=== PATIENT | female | born 1935 | race Caucasian/White ===

== ENCOUNTER 2018-03-30 10:29 | Observation (INO) | payer OTHER ==
[~2018-03-30] VITALS: Ht 154.9 cm; Wt 90.9 kg
[~2018-03-30 10:29] MED LIST: AMITIZA24 MCG PO; ASPIRIN81 MG PO; BUPROPION XL300 MG PO; CENTRUM SILVER1 EAC3 PO; CITALOPRAM HBR40 MG OD; FUROSEMIDE40 MG PO; HYDROCHLOROTHIA25 MG PO; IRON PO; LEVOTHYROXINE75 MCG PO; LISINOPRIL20 MG PO; METFORMIN HCL500 MG PO; OMEPRAZOLE20 M1 PO; OMEPRAZOLE40 MG PO; ONDANSETRON PO; POTASSIUM CHLO10 ME1 PO; PRAVASTATIN SOD40 MG PO; VENLAFAXINE HC150 M1 PO
[2018-03-30] MEDS ORDERED: FUROSEMIDE INJ 10 MG/ML 4 ML VIAL IV ONE (10:45)
[2018-03-30] MEDS ORDERED: ASPIRIN 81 MG CHEW TAB PO ONE ×2 (10:45→13:00)
[2018-03-30] MEDS ORDERED: ATORVASTATIN CA20 MG PO (10:57)
[2018-03-30] MEDS ORDERED: VERAPAMIL ER120 MG PO (10:57)
[2018-03-30] MEDS ORDERED: CARTIA XT120 MG PO (10:57)
[2018-03-30] MEDS ORDERED: NITROGLYCERIN0.4 MG SL (10:57)
[2018-03-30] MEDS ORDERED: ISOSORBIDE MONO20 MG PO (10:57)
[2018-03-30] MEDS ORDERED: PAROXETINE HCL20 MG PO (10:57)
[2018-03-30] MEDS ORDERED: LOSARTAN-HCTZ1 EAC1 PO (10:58)
[2018-03-30] MEDS ORDERED: XARELTO10 MG PO (10:58)
[2018-03-30 11:12] LABS: BASOPHILS % 0.3 % (0.0-1.0); EOSINOPHILS % 0.4 % (0.0-6.0); HEMATOCRIT 31.7 % (34.2-44.1); HEMOGLOBIN 9.7 g/dL (12.0-16.0); LYMPHOCYTES # (AUTO) 1.2 (1.0-3.2); MEAN CORPUSCULAR HEMOGLOBIN 24.7 pg (28-32); MEAN CORPUSCULAR HGB CONC 30.6 g/dL (31-35); MEAN CORPUSCULAR VOLUME 80.9 fL (81-99); MONOCYTES # (AUTO) 0.5 (0.2-0.8); MONOCYTES % 4.5 % (4.4-11.3); NEUTROPHILS # (AUTO) 8.9 (2.1-6.9); NEUTROPHILS % 83.4 % (38.7-80.0); PLATELET COUNT 351 x10e3/uL (140-360); RED BLOOD COUNT 3.92 x10e6/uL (3.6-5.1); RED CELL DISTRIBUTION WIDTH 16.4 % (11.7-14.4)
[2018-03-30 11:20] LABS: ABG HCO3 32 mmol/L (23-28); ABG PCO2 46 mmHg (41-51); ABG PH 7.45 (7.31-7.41); ABG PO2 79 mmHg (80-105)
[2018-03-30 11:29] LABS: ALBUMIN 3.5 g/dL (3.5-5.0); ANION GAP 18.4 mmol/L (8-16); CALCIUM 9.6 mg/dL (8.4-10.2); CREATININE, SERUM 1.29 mg/dL (0.57-1.11); POTASSIUM 3.4 mmol/L (3.5-5.1)
--- NOTE | 2018-03-30 11:32 | Diagnostic Imaging Report ---
EXAMINATION: CHEST SINGLE (PORTABLE) COMPARISON: None FINDINGS: TUBES and LINES: None. LUNGS: Lungs are well inflated. Lungs are clear. There is no evidence of pneumonia or pulmonary edema. PLEURA: No pleural effusion or pneumothorax. HEART AND MEDIASTINUM: The cardiomediastinal silhouette is unremarkable. BONES AND SOFT TISSUES: No acute osseous lesion. Soft tissues are unremarkable. UPPER ABDOMEN: No free air under the diaphragm. IMPRESSION: No acute radiographic abnormality. Signed by: Dr. Rick Rosa MD on 03/30/2018 11:28 AM
[2018-03-30 11:35] LABS: CREATINE KINASE MB 1.1 ng/mL (0-5.0)
[2018-03-30 11:37] LABS: CLARITY,URINE CLEAR (CLEAR); COLOR,URINE STRAW (YELLOW)
[2018-03-30 11:38] LABS: BILIRUBIN,URINE NEGATIVE (NEGATIVE); KETONES,URINE NEGATIVE (NEGATIVE); LEUKOCYTE ESTERASE ,URINE TRACE (NEGATIVE); NITRITE,URINE NEGATIVE (NEGATIVE); PROTEIN,URINE DIPSTICK NEGATIVE (NEGATIVE); URINE UROBILINOGEN 0.2 mg/dL (0.2 - 1)
[2018-03-30] MEDS ORDERED: SODIUM CHLORIDE 0.9% 250ML 250 ML IV ONE (11:45)
[2018-03-30 11:47] LABS: EPITHELIAL CELLS,URINE MANY /LPF
[2018-03-30 11:48] LABS: BACTERIA,URINE RARE /HPF; TRANSITIONAL EPI CELLS,URINE FEW
[2018-03-30] MEDS ORDERED: ACETAMINOPHEN 325 MG TAB ONE (12:23)
[2018-03-30] MEDS ORDERED: ACETAMINOPHEN 325 MG TAB PO ONE (12:30)
--- NOTE | 2018-03-30 13:24 | Diagnostic Imaging Report ---
EXAMINATION: CT of the chest with contrast, PE protocol. TECHNIQUE: Spiral CT images of the chest were performed from the lung apices through the level of the adrenal glands after the IV administration of 100 cc of Isovue 370. Thin section reconstructions were obtained with special concentration on the pulmonary arteries. Coronal and sagittal reformatted images were also performed. COMPARISON: <none> CLINICAL HISTORY:Shortness of breath DISCUSSION: Exam is mildly limited, as it was acquired during partial expiratory phase as secondary to breathing motion artifact Lungs: No filling defects are identified in the main, right or left pulmonary arteries to their segmental levels, to suggest pulmonary embolism. Mild diffusely increased attenuation of the pulmonary parenchyma secondary to scan obtained during partial expiration. No pulmonary nodules, masses or consolidation. Central airways are clear, without bronchial lesions. Pleura: <There is no evidence of pleural effusion or pneumothorax.> Heart and mediastinum: Mild cardiomegaly. Atherosclerotic calcification of the coronary arteries, aortic valves and thoracic aorta. Aorta is nonaneurysmal. Main pulmonary artery is normal in caliber, measuring approximately 2.2 cm. Lymph nodes: No mediastinal, hilar or axillary adenopathy. Abdomen: Limited visualization of the upper abdomen shows no abnormalities in the liver, spleen, pancreas, left kidney or adrenal glands. Bones and soft tissues: Multilevel degenerative disc changes in the thoracic spine. Generalized osteopenia. Mild anterior wedge deformity of the T5 vertebral body, likely reflecting an age-indeterminate compression deformity. Soft tissues are grossly unremarkable. IMPRESSION: 1. Despite limitations secondary to scan performed during partial expiratory phase and breathing motion artifact, there is no CT evidence of pulmonary embolism to the segmental level. 2. Essentially clear lungs. 3. Mild cardiomegaly. Signed by: Dr. Mark Steven M.D. on 03/30/2018 1:21 PM
--- OUTSIDE RECORDS SUMMARY | 2018-03-30 13:55 | XMS REPORT ---
Author Author [facility] Address Unknown Phone Unavailable Care Team Providers Care Director Nursing Service Name Role Phone Rosa BRODERICK Unavailable Unavailable Problems This patient has no known problems. Allergies, Adverse Reactions, Alerts This patient has no known allergies or adverse reactions. Medications This patient has no known medications. Results Test Description Test Time Test Comments Text Results Atomic Results Result Comments CT CHEST W 2018-03-30 13:11:00 [place] [address] Patient Name: BALJEET ABRAHAM MR #: [id number] : 1935 Age/Sex: 82/F Req #: [id number] [facility] Physician: Ordered by: MARIVEL BRODERICK MD Report #: [id number] Location: ER Room/Bed: Procedure: [id number] CT/CT CHEST W Exam Date: Exam Time: REPORT STATUS: Signed EXAMINATION: CT of the chest with contrast, PE protocol. TECHNIQUE: Spi ral CT images of the chest were performed from the lung apices through the level of the adrenal glands after the IV administration of 100 cc of Isovue 370. Thin section reconstructions were obtained with special concentration on the pulmonary arteries. Coronal and sagittal reformatted images were also performed. COMPARISON: <none> CLINICAL HISTORY:Shortness of breath DISCUSSION: Exam is mildly limited, as it was acquired during partial expiratory phase as secondary to breathing motion artifact Lungs: No filling defects are identified in the main, right or left pulmonary arteries to their segmental levels, to suggest pulmonary embolism. Mild diffusely increased attenuation of the pulmonary parenchyma secondary to scan obtained during partial expiration. No pulmonary nodules, masses or consolidation. Central airways are clear, without bronchial lesions. Pleura: <There is no evidence of pleural effusion or pneumothorax.> Heart and mediastinum: Mild cardiomegaly. Atherosclerotic calcification of the coronary arteries, aortic valves and thoracic aorta. Aorta is nonaneurysmal. Main pulmonary artery is normal in caliber, measuring approximately 2.2 cm. Lymph nodes: No mediastinal, hilar or axillary adenopathy. Abdomen: Limited visualization of the upper abdomen shows no abnormalities in the liver, spleen, pancreas, left kidney or adrenal glands. Bones and soft tissues: Multilevel degenerative disc changes in the thoracic spine. Generalized osteopenia. Mild anterior wedge deformity of the T5 vertebral body, likely reflecting an age- indeterminate compression deformity. Soft tissues are grossly unremarkable. IMPRESSION: 1. Despite limitations secondary to scan performed during partial expiratory phase and breathing motion artifact, there is no CT evidence of pulmonary embolism to the segmental level. 2. Essentially clear lungs. 3. Mild cardiomegaly. Signed by: Dr. Leila Steven M.D. on 03/30/2018 1:21 PM Dictated By: LEILA STEVEN MD 1321 Transcribed By: OSMEL on 03/30/18 1321 COPY TO: MARIVEL BRODERICK MD CHEST SINGLE (PORTABLE) 2018-03-30 11:26:00 [place] [address] Patient Name: BALJEET ABRAHAM MR #: [id number] : 1935 Age/Sex: 82/F Req #: [id number] Adm Physician: Ordered by: MARIVEL BRODERICK MD Report #: [id number] Location: ER Room/Bed: Procedure: [id number] DX/CHEST SINGLE (PORTABLE) Exam Date: 03/30/18 Exam Time: 1105 REPORT STATUS: Signed EXAMINATION: CHEST SINGLE (PORTABLE) HEATHER RISON: None FINDINGS: TUBES and LINES: None. LUNGS: Lungs are well inflated. Lungs are clear. There is no evidence of pneumonia or pulmonary edema. PLEURA: No pleural effusion or pneumothorax. HEART AND MEDIASTINUM: The cardiomediastinal silhouette is unremarkable. BONES AND SOFT TISSUES: No acute osseous lesion. Soft tissues are unremarkable. UPPER ABDOMEN: No free air under the diaphragm. IMPRESSION: No acute radiographic abnormality. Signed by: Dr. Karen Meraz MD on 03/30/2018 11:28 AM Dictated By: KAREN MERAZ MD 1128 Transcribed By: OSMEL on 03/30/18 1128 COPY TO: MARIVEL BRODERICK MD
[2018-03-30] MEDS ORDERED: SODIUM CHLORIDE 0.9% 50ML 50 ML ONE (13:57)
[2018-03-30] MEDS ORDERED: IOPAMIDOL 370 MG/ML 200 ML INFUS..BTL INJ ONE (13:57)
[2018-03-30 15:29] VITALS: BP 122/59
[2018-03-30 15:55] VITALS: BP 122/59
[2018-03-30 19:26] LABS: CREATINE KINASE MB 1.7 ng/mL (0-5.0)
[2018-03-30 20:00] VITALS: BP 133/62
[2018-03-30] MEDS ORDERED: NITROGLYCERIN 0.4 MG SUBL SL SCH (20:00)
[2018-03-30] MEDS: ATORVASTATIN 20 MG TAB PO SCH (21:04)
[2018-03-30] MEDS: PAROXETINE HCL 20 MG TAB PO SCH (21:04)
[2018-03-30 22:20] VITALS: BP 133/62
[2018-03-31] VITALS (8 sets, daily range): BP systolic 102–136; BP diastolic 53–67
[2018-03-31 05:18] LABS: ANION GAP 14.1 mmol/L (8-16); CALCIUM 9.1 mg/dL (8.4-10.2); CREATININE, SERUM 1.19 mg/dL (0.57-1.11); POTASSIUM 3.1 mmol/L (3.5-5.1)
[2018-03-31] MEDS: LEVOTHYROXINE SODIUM 100 MCG TAB PO SCH (05:21)
[2018-03-31 07:12] LABS: CREATINE KINASE MB 1.9 ng/mL (0-5.0)
[2018-03-31] MEDS: PANTOPRAZOLE SOD 40 MG TABEC PO SCH (08:43)
[2018-03-31] MEDS: ASPIRIN 81 MG CHEW TAB PO SCH (08:47)
[2018-03-31] MEDS: VERAPAMIL HCL 120 MG TABSR PO SCH (08:47)
[2018-03-31] MEDS: DILTIAZEM HCL ER 120 MG CAPCR PO SCH (08:48)
[2018-03-31] MEDS: RIVAROXABAN 15 MG TABLET PO SCH (08:48)
[2018-03-31] MEDS: POTASSIUM CHLORIDE 10MEQ EA PO SCH (08:48)
[2018-03-31] MEDS: ISOSORBIDE MONONITRATE 30 MG TAB CR PO SCH (08:48)
[2018-03-31] MEDS: PAROXETINE HCL 20 MG TAB PO SCH (08:48)
[2018-03-31] MEDS ORDERED: FUROSEMIDE 40 MG TAB PO SCH (09:00)
[2018-03-31] MEDS ORDERED: POTASSIUM CHLORIDE 20 MEQ TAB CR PO ONE (09:00)
--- NOTE | 2018-03-31 09:07 | Consultation ---
DATE OF CONSULTATION: March 30, 2018 CARDIOLOGY CONSULTATION REASON FOR CONSULTATION: CHF and dyspnea. HPI: This is a pleasant 82-year-old female that presented with dyspnea. According to the patient, yesterday she started having shortness of breath, dyspnea with activity that she came to the emergency room for evaluation. She stated for the last couple of months she had been having the same symptoms that comes and goes. She denied any chest pain, any palpitations, any dizziness, any diaphoresis, or headache. She had a CT of chest done that showed mild cardiomegaly. Chest x-ray showed no acute radiographic abnormalities. Troponin was negative times 3. EKG showed normal sinus rhythm with no S/T abnormalities. BNP was 94. She also had a history of paroxysmal AFib, and was started on Xarelto recently. PAST MEDICAL HISTORY: Hypertension, diabetes, obesity, [place], GERD, hypothyroidism, osteoarthritis, paroxysmal AFib, depression, and renal insufficiency. PAST SURGICAL HISTORY: Left knee surgery and cardiac stent. FAMILY HISTORY: Positive for hypertension. SOCIAL HISTORY: She lives at home with family. She quit smoking 20 years ago. MEDICATIONS: She was on aspirin, atorvastatin, Cardizem, furosemide, isosorbide, levothyroxine, nitroglycerin, omeprazole, paroxetine, potassium chloride, Xarelto, and verapamil. ALLERGIES: SHE IS NOT ALLERGIC TO ANY MEDICATIONS. REVIEW OF SYSTEMS: Negative except those mentioned above. She is positive for dyspnea. PHYSICAL EXAMINATION VITAL SIGNS: Temperature 98, heart rate 69, blood pressure 110/54, respirations 18, oxygen saturation 95% on 3 L nasal cannula. GENERAL: She is awake, alert and oriented times 3. HEENT: Mucous membranes moist. NECK: Supple. LUNGS: Bilateral clear to auscultation. CARDIOVASCULAR: S1 and S2 present. ABDOMEN: Soft. NEUROLOGICAL: Intact. EXTREMITIES: With no edema. LABS: Sodium 141, potassium 3.1, chloride 98, CO2 32, BUN 18, creatinine 1.1, glucose 138. White blood cells 10.6, hemoglobin 9.7, hematocrit 31.7, and platelets 351,000. IMPRESSION 1. Acute diastolic congestive heart failure. 2. Paroxysmal atrial fibrillation. 3. Hypertension. 4. Hypokalemia. 5. Diabetes. 6. Obesity. 7. Renal insufficiency. 8. History of coronary artery disease with cardiac stents. 9. Anemia. ASSESSMENT AND PLAN 1. She had an echocardiogram done that showed normal systolic function, EF 50% to 55%. 2. Will go ahead and continue her home medications. 3. Check her hemoglobin A1c and TSH. 4. Counseled on low salt diet and weight reduction. Potassium is low and has been replaced. Further cardiac workup pending clinical course. Thank you for this consultation. DICTATED BY CARISA CARRINGTON NP Job#: [id number] SURESH
[2018-03-31 10:09] LABS: % IRON SATURATION 7 % (15-50); IRON 30 ug/dL (50-170); TOTAL IRON BINDING CAPACITY 402 ug/dL (261-478); TRANSFERRIN 287 mg/dL (180-382)
[2018-03-31] MEDS ORDERED: FUROSEMIDE INJ 10 MG/ML 4 ML VIAL IV ONE (10:15)
--- NOTE | 2018-03-31 10:28 | History and Physical ---
PCP: Dr. Shoaib Navarrete CHIEF COMPLAINT: Shortness breath on exertion. HISTORY OF PRESENT ILLNESS: Patient is an 82-year-old female with coronary disease and paroxysmal atrial fibrillation who came in with congestive heart failure acute exacerbation, most likely chronic diastolic dysfunction heart failure. Patient has been taking a water pill, and she has been losing approximately 6 to 8 pounds with increased urination, which helped the breathing, but she did have some shortness of breath overnight, which brought the patient in. She has trace TR and mild MR. Ejection fraction on echocardiogram showed 55%. Patient is otherwise stable. She is slightly anemic secondary to chronic kidney disease. PAST MEDICAL HISTORY: Chronic anemia, paroxysmal atrial fibrillation, diastolic dysfunction congestive heart failure, history of hypertension. She also has coronary disease with 2 previous stents approximately 14 and 19 years ago. PAST SURGICAL HISTORY: Left knee replacement, partial right nephrectomy, hysterectomy, appendectomy. SOCIAL HISTORY: Patient quit smoking greater than 20 years ago. HOME MEDICATIONS: List is reviewed. ALLERGIES: NO KNOWN ALLERGIES. REVIEW OF SYSTEMS: Shortness of breath on exertion, much improved. No chest pain. No lower extremity edema. No abdominal pain. PHYSICAL EXAMINATION VITAL SIGNS: Temperature is 98, blood pressure 114/69, pulse rate 70. Respirations 18. GENERAL: The patient is in no acute distress. She is awake. HEENT: Normocephalic, atraumatic, anicteric. NECK: Supple grossly. PULMONARY: Diminished breath sounds with minimal rales at the bases. CARDIOVASCULAR: S1 and S2. Regular rate and rhythm. ABDOMEN: Soft. Positive bowel sounds. Grossly nontender and nondistended. EXTREMITIES: No cyanosis or edema. NEUROLOGIC: No focal deficit. LABORATORY: Sodium is 141, potassium 3.1, chloride 98, bicarb 32, BUN 18, creatinine 1.1. Glucose 188. WBC is 11, hemoglobin 9.7, hematocrit 31.7, platelets 351. CT chest showed there is no evidence of pulmonary embolism. Mild cardiomegaly. IMPRESSION 1. Axive-ey-kzxwide diastolic dysfunction congestive heart failure exacerbation. 2. Shortness of breath on exertion. 3. Multiple chronic baseline problems, coronary disease, chronic anemia, history of right partial nephrectomy, history of coronary stent times 2. 4. Ex-smoker. 5. Paroxysmal atrial fibrillation. PLAN: Continue with diuresis. Replace potassium. Continue with anticoagulant therapy. Will monitor the patient closely. Job#: [id number] MH
[2018-03-31 10:52] LABS: FOLATE 18.1 ng/mL (7.0-15.4)
[2018-03-31] MEDS: ATORVASTATIN 20 MG TAB PO SCH (21:19)
[2018-04-01 01:00] VITALS: BP 116/56
[2018-04-01 03:35] VITALS: BP 129/59
[2018-04-01 05:19] LABS: BASOPHILS % 0.5 % (0.0-1.0); EOSINOPHILS # (AUTO) 0.3 (0.0-0.4); EOSINOPHILS % 6.2 % (0.0-6.0); HEMOGLOBIN 8.5 g/dL (12.0-16.0); LYMPHOCYTES # (AUTO) 1.8 (1.0-3.2); LYMPHOCYTES % 32.8 % (18.0-39.1); MEAN CORPUSCULAR HEMOGLOBIN 25.2 pg (28-32); MEAN CORPUSCULAR HGB CONC 31.5 g/dL (31-35); MEAN CORPUSCULAR VOLUME 80.1 fL (81-99); MONOCYTES # (AUTO) 0.4 (0.2-0.8); MONOCYTES % 7.8 % (4.4-11.3); NEUTROPHILS # (AUTO) 2.9 (2.1-6.9); NEUTROPHILS % 52.3 % (38.7-80.0); PLATELET COUNT 297 x10e3/uL (140-360); RED BLOOD COUNT 3.37 x10e6/uL (3.6-5.1); RED CELL DISTRIBUTION WIDTH 16.2 % (11.7-14.4)
[2018-04-01 05:41] LABS: ANION GAP 14.6 mmol/L (8-16); CALCIUM 9.2 mg/dL (8.4-10.2); CREATININE, SERUM 1.1 mg/dL (0.57-1.11); POTASSIUM 3.6 mmol/L (3.5-5.1)
[2018-04-01] MEDS: LEVOTHYROXINE SODIUM 100 MCG TAB PO SCH (05:45)
[2018-04-01 08:31] VITALS: BP 124/54
[2018-04-01] MEDS: PANTOPRAZOLE SOD 40 MG TABEC PO SCH (08:52)
[2018-04-01] MEDS: ASPIRIN 81 MG CHEW TAB PO SCH (08:53)
[2018-04-01] MEDS: POTASSIUM CHLORIDE 10MEQ EA PO SCH (08:55)
[2018-04-01] MEDS: DILTIAZEM HCL ER 120 MG CAPCR PO SCH (08:55)
[2018-04-01] MEDS: VERAPAMIL HCL 120 MG TABSR PO SCH (08:57)
[2018-04-01] MEDS: RIVAROXABAN 15 MG TABLET PO SCH (08:59)
[2018-04-01] MEDS: ISOSORBIDE MONONITRATE 30 MG TAB CR PO SCH (08:59)
[2018-04-01] MEDS: PAROXETINE HCL 20 MG TAB PO SCH (09:00)
[2018-04-01] MEDS ORDERED: FUROSEMIDE INJ 10 MG/ML 4 ML VIAL IV SCH (09:00)
[2018-04-01] MEDS ORDERED: ACETAMINOPHEN 325 MG TAB PO NR (11:45)
[2018-04-01] MEDS ORDERED: DIPHENHYDRAMINE HCL 25 MG CAP PO NR (11:45)
[2018-04-01] MEDS ORDERED: IRON SUCROSE 100 MG in SODIUM CHLORIDE 0.9% 100 ML 100 ML IV SCH (12:00)
[2018-04-01 12:10] VITALS: BP 114/62
[2018-04-01 16:42] VITALS: BP 118/59
[2018-04-01 18:46] VITALS: BP 118/59
--- NOTE | 2018-04-02 05:55 | Discharge Summary ---
PRIMARY CARE PHYSICIAN: Shoaib Navarrete MD LEAD SOFTWARE DEVELOPMENT ENGINEER: Servando Ziegler MD FINAL DIAGNOSES 1. [id number] diastolic dysfunction congestive heart failure associated with volume overload associated with increasing shortness of breath, resolved. 2. Chronic anemia. SUMMARY: An 82-year-old female who came in with increasing shortness of breath. Apparently she stopped taking her Lasix. The patient is stable now. The echocardiogram showed ejection fraction of 60%. Patient is going back to her usual home medications. Her hemoglobin and hematocrit is 8.5 and 27. No active bleed. No sign of bleeding and anemia, but the patient does have chronic anemia secondary to iron deficiency. Iron infusion given 1 dose. Hemocyte Plus 1 tablet twice a day given to the patient. Patient is stable. Resume home medications. Discharged home today. Discontinue lisinopril/HCTZ. Continue with Lasix and potassium. Discontinue Cartia XL and continue with verapamil ER 180 mg daily. The patient is otherwise stable. Discharged home today. Job#: [id number] KYLEIGH
== END 2018-04-01 18:40 | disposition home or self-care (01) ==
LOC: ER 10:29 → ERHOLD 12:53 → IMCU 15:09
PROVIDERS: ADMIT Internal Medicine; ATTEND Internal Medicine
DX: I13.0 Hypertensive heart and chronic kidney disease with heart failure and stage 1 through stage 4 chronic kidney disease, or unspecified chronic kidney disease (principal); I50.33 Acute on chronic diastolic (congestive) heart failure; I48.0 Paroxysmal atrial fibrillation; I25.10 Atherosclerotic heart disease of native coronary artery without angina pectoris; Z95.5 Presence of coronary angioplasty implant and graft; Z87.891 Personal history of nicotine dependence; N18.9 Chronic kidney disease, unspecified; D63.1 Anemia in chronic kidney disease; E87.6 Hypokalemia; E11.22 Type 2 diabetes mellitus with diabetic chronic kidney disease; E66.9 Obesity, unspecified; Z68.36 Body mass index [BMI] 36.0-36.9, adult
CPT/HCPCS: 36415 ×3; 36600; 71045; 71260; 80048; 80053 ×2; 81001; 82550 ×2; 82553 ×2; 82607; 82746; 82805; 83036; 83540; 83735; 83880; 84443; 84466; 84484 ×2; 85025 ×2; 93005 ×2; 93306; 99284; G0378 ×3; J1756; J1940 ×3; J7050; Q9967; S0164 ×2

== ENCOUNTER → 2021-12-03 | Day surgery (SDC) | payer OTHER ==
[2021-12-01 13:08] LABS: BASOPHILS % 0.8 % (0.0-1.0); EOSINOPHILS # (AUTO) 0.2 (0.0-0.4); EOSINOPHILS % 3.6 % (0.0-6.0); HEMATOCRIT 32.2 % (34.2-44.1); HEMOGLOBIN 9.7 g/dL (12.0-16.0); LYMPHOCYTES # (AUTO) 1.5 (1.0-3.2); LYMPHOCYTES % 28.4 % (18.0-39.1); MEAN CORPUSCULAR HEMOGLOBIN 27.4 pg (28-32); MEAN CORPUSCULAR HGB CONC 30.1 g/dL (31-35); MONOCYTES # (AUTO) 0.5 (0.2-0.8); MONOCYTES % 9.3 % (4.4-11.3); NEUTROPHILS # (AUTO) 3.1 (2.1-6.9); NEUTROPHILS % 57.7 % (38.7-80.0); PLATELET COUNT 334 x10e3/uL (140-360); RED BLOOD COUNT 3.54 x10e6/uL (3.6-5.1); RED CELL DISTRIBUTION WIDTH 13.3 % (11.7-14.4)
[2021-12-01 13:19] LABS: ANION GAP 12.9 mmol/L (8-16); CALCIUM 8.8 mg/dL (8.4-10.2); CREATININE, SERUM 1.32 mg/dL (0.57-1.11); POTASSIUM 3.9 mmol/L (3.5-5.1)
[~2021-12-03] MED LIST changes: +ATORVASTATIN CA20 MG PO; +BALANCED SALT SOLN (OPTH) 15 ML BTL IO ONE; +BUPIVACAINE HC 0.75% PF 10ML VIAL INJ ONE; +BUSPIRONE HCL10 MG PO; +CARTIA XT120 MG PO; +CYCLOPENTOLATE HCL 2% OPTH SOLN 2 ML BTL OP ONE; +EPINEPHRINE HCL 1:1000 1ML 1 MG/ML AMP ONE; +ESCITALOPRAM OX20 MG PO; +FENTANYL CITRATE/PF 100MCG/2 ML INJ ONE; +FERROUS SULFAT325 MG PO; +GATIFLOXACIN(OPTH) 5 ML LIQD ONE; +ISOSORBIDE MONO20 MG PO; +LIDOCAINE 2% /EPINEPHRINE 20 ML SDV INJ ONE; +LIDOCAINE HCL-PF 4% 40 MG/1 ML 5ML AMP ONE; +LOSARTAN-HCTZ1 EAC1 PO; +METOLAZONE5 MG PO; +METOPROLOL SUCC25 MG PO; +NITROGLYCERIN0.4 MG SL; +PAROXETINE HCL20 MG PO; +PHENYLEPHRINE HCL 10% 5 ML OPTH SOLN ONE; +PHENYLEPHRINE HCL 2 ML DROPS ONE; +PILOCARPINE HCL(OPTH) 15 ML LIQD ONE; +PLAVIX75 MG PO; +POVIDONE IODINE 0.05% 0.05 % ML PO ONE; +POVIDONE IODINE 5% (OPTH) 30 ML BTL ONE; +PROPOFOL IV EMULSION 10 MG/ML 20 ML VIAL ONE; +TOBRAMYCIN/DEXAMETHASONE(OPTH) 3.5 GM TUBE ONE; +VERAPAMIL ER120 MG PO; +VIT B12 PO; +XARELTO10 MG PO; +ZESTRIL10 MG PO
[2021-12-03 11:25] VITALS: BP 170/74
== END | disposition home or self-care (01) ==
LOC: OR 07:50
PROVIDERS: ATTEND Ophthalmology
DX: H25.12 Age-related nuclear cataract, left eye (principal); G47.33 Obstructive sleep apnea (adult) (pediatric); E11.9 Type 2 diabetes mellitus without complications; I10 Essential (primary) hypertension; K21.9 Gastro-esophageal reflux disease without esophagitis; R00.1 Bradycardia, unspecified; M19.90 Unspecified osteoarthritis, unspecified site; I48.91 Unspecified atrial fibrillation; I25.10 Atherosclerotic heart disease of native coronary artery without angina pectoris; I25.2 Old myocardial infarction; E03.9 Hypothyroidism, unspecified; K44.9 Diaphragmatic hernia without obstruction or gangrene; F41.9 Anxiety disorder, unspecified; F32.A Depression, unspecified; Z91.040 Latex allergy status; Z01.810 Encounter for preprocedural cardiovascular examination; Z01.812 Encounter for preprocedural laboratory examination; Z20.822 Contact with and (suspected) exposure to COVID-19; Z79.02 Long term (current) use of antithrombotics/antiplatelets; Z79.899 Other long term (current) drug therapy; Z85.528 Personal history of other malignant neoplasm of kidney; Z95.5 Presence of coronary angioplasty implant and graft; Z87.891 Personal history of nicotine dependence
CPT/HCPCS: 36415; 80048; 85025; 93005; J0171; J2001; J3010; V2632

== ENCOUNTER → 2022-01-14 | Outpatient (CLI) | payer OTHER ==
[2022-01-11 10:02] LABS: BASOPHILS % 0.4 % (0.0-1.0); EOSINOPHILS # (AUTO) 0.1 (0.0-0.4); EOSINOPHILS % 2.2 % (0.0-6.0); HEMATOCRIT 32.4 % (34.2-44.1); LYMPHOCYTES # (AUTO) 0.7 (1.0-3.2); LYMPHOCYTES % 30.1 % (18.0-39.1); MEAN CORPUSCULAR HEMOGLOBIN 26.2 pg (28-32); MEAN CORPUSCULAR HGB CONC 30.9 g/dL (31-35); MONOCYTES # (AUTO) 0.3 (0.2-0.8); MONOCYTES % 11.8 % (4.4-11.3); NEUTROPHILS # (AUTO) 1.3 (2.1-6.9); NEUTROPHILS % 55.5 % (38.7-80.0); PLATELET COUNT 227 x10e3/uL (140-360); RED BLOOD COUNT 3.81 x10e6/uL (3.6-5.1); RED CELL DISTRIBUTION WIDTH 13.9 % (11.7-14.4)
[2022-01-11 10:19] LABS: CALCIUM 8.1 mg/dL (8.4-10.2); CREATININE, SERUM 1.04 mg/dL (0.57-1.11)
[~2022-01-14] MED LIST changes: -BALANCED SALT SOLN (OPTH) 15 ML BTL IO ONE; -BUPIVACAINE HC 0.75% PF 10ML VIAL INJ ONE; -CYCLOPENTOLATE HCL 2% OPTH SOLN 2 ML BTL OP ONE; -EPINEPHRINE HCL 1:1000 1ML 1 MG/ML AMP ONE; -FENTANYL CITRATE/PF 100MCG/2 ML INJ ONE; -GATIFLOXACIN(OPTH) 5 ML LIQD ONE; -LIDOCAINE 2% /EPINEPHRINE 20 ML SDV INJ ONE; -LIDOCAINE HCL-PF 4% 40 MG/1 ML 5ML AMP ONE; -PHENYLEPHRINE HCL 10% 5 ML OPTH SOLN ONE; -PHENYLEPHRINE HCL 2 ML DROPS ONE; -PILOCARPINE HCL(OPTH) 15 ML LIQD ONE; -POVIDONE IODINE 0.05% 0.05 % ML PO ONE; -POVIDONE IODINE 5% (OPTH) 30 ML BTL ONE; -PROPOFOL IV EMULSION 10 MG/ML 20 ML VIAL ONE; -TOBRAMYCIN/DEXAMETHASONE(OPTH) 3.5 GM TUBE ONE
== END | disposition home or self-care (01) ==
LOC: LAB 07:05 → OR 07:05 → EDSTATUS 10:00
PROVIDERS: ATTEND Ophthalmology
DX: H25.11 Age-related nuclear cataract, right eye (principal); U07.1 COVID-19; Z01.812 Encounter for preprocedural laboratory examination; Z53.8 Procedure and treatment not carried out for other reasons
CPT/HCPCS: 0223U; 36415; 80048; 85025